=== PATIENT | female | born 1985 | race Caucasian/White ===

== ENCOUNTER 2018-05-05 09:23 | Outpatient (CLI) | payer BC ==
--- NOTE | 2018-05-05 11:24 | RAD ---
CERVICAL SPINE 7 VIEWS: HISTORY: Occipital neuralgia. FINDINGS: The cervical vertebrae maintain normal height and alignment. Disk spaces are normally maintained. A lignment is normally maintained with flexion and extension. The foramina appear patent. IMPRESSION: Unremarkable cervical spine. POS: [facility]
--- NOTE | 2018-05-05 12:23 | MRI ---
MRI OF CERVICAL SPINE: Multiplanar, multisequential imaging of cervical spine obtained without contrast. INDICATION: Occipital neuralgia. FINDINGS: The cervical vertebrae maintain normal height and alignment. Disk spaces are preserved. Vertebral b yvrose signal is normal. Mild central disk bulge at C4-5 indents the anterior thecal sac and effaces the anterior subarachnoid space. At C5-6, a mild disk bulge also effaces the anterior subarachnoid space without significant cord impi ngement. At C6-7, very mild disk bulge. The anterior subarachnoid space is preserved. Cord signal is normal. IMPRESSION: Mild disk bulges at C4-5 and C5-6 efface the anterior subarachnoid space. POS: [facility]
== END 2018-05-05 09:24 | disposition home or self-care (01) ==
LOC: TBSIIMAG 09:23
PROVIDERS: ATTEND Anesthesiology Pain Medicine
DX: M54.81 Occipital neuralgia (principal); M50.80 Other cervical disc disorders, unspecified cervical region
CPT/HCPCS: 72050; 72141